=== PATIENT | male | born 1960 ===

== ENCOUNTER 2017-08-24 17:28 | Emergency (ER) | payer OTHER ==
--- NOTE | 2017-08-24 18:19 | EDM.PDOC ---
ED HPI GENERAL MEDICAL PROBLEM - General Time Seen by Provider: 08/24/17 17:30 Source of Information: Reports: Patient History Limitations: Reports: No Limitations - History of Present Illness INITIAL COMMENTS - FREE TEXT/NARRATIVE: Pt was cutting wood at home using his chain saw and accidentally the saw hit his left knee and sustained 4 cm long.The wound is gapping and presently not bleeding. he did clean and apply bandaid on it. No pain in the knee. His last tetanus shot was 2 months ago. Onset: Today Onset Date: 08/24/17 Onset Time: 17:00 ED ROS GENERAL - Review of Systems Review Of Systems: See Below Constitutional: Denies: Fever, Chills HEENT: Denies: Rhinitis, Throat Pain, Throat Swelling Respiratory: Denies: Cough, Sputum Cardiovascular: Denies: Chest Pain, Lightheadedness GI/Abdominal: Denies: Abdominal Pain, Nausea, Vomiting ED EXAM, GENERAL - Physical Exam Exam: See Below Exam Limited By: No Limitations General Appearance: Alert, WD/WN, No Apparent Distress Eye Exam: Bilateral Eye: EOMI, PERRL Ears: Normal External Exam, Normal Canal, Hearing Grossly Normal, Normal TMs Nose: Normal Inspection, Normal Mucosa, No Blood Throat/Mouth: Normal Inspection, Normal Lips, Normal Teeth, Normal Gums, Normal Oropharynx, Normal Voice, No Airway Compromise Head: Atraumatic, Normocephalic Neck: Normal Inspection, Supple, Non-Tender, Full Range of Motion Extremities: Normal Range of Motion, Non-Tender, No Pedal Edema, Normal Capillary Refill, Other (Left knee: There is a 4 cm long clean cut laceration which is skin deep. No active bleeding, but is over the knee joint and gapping.) ED GENERAL MEDICAL PROCEDURES - Laceration/Wound Repair Left Knee Lac/wound length in cm: 4 Appearance: Superficial, Subcutaneous Anesthetic Type: Local Local Anesthesia - Lidocaine (Xylocaine): 2% with EPI Local Anesthetic Volume: 3cc Skin Prep: Providone-Iodine (Betadine) Closed with: Sutures Suture Size: other (5-O) # of Sutures: 8 Suture Type: Other (monosuf) Sterile Dressing Applied: Provider Tetanus Status Addressed: Yes Complications: No Course - Vital Signs Text/Narrative:: Pt has a 4 cm long clean gapping wound over the left knee. The wound was cleaned with povidine lotion . The wound was closed under aseptic precautions. Advised to avoid extreme flexion of the knee to prevent suture tear.Wound care discussed. suture removal in 10 days. Departure - Departure Time of Disposition: 18:00 Disposition: Home, Self-Care 01 Condition: Good Clinical Impression: Laceration of knee without complication - Discharge Information Instructions: Sutured Wound Care, [id number] Additional Instructions: Do not wet the wound for 2 days. After 2 days may let soap and water run over wound, than pat area dry. Follow up in clinic in 10 to 12 days to have sutures removed. Do not overbend knee or kneel on knee. Watch for signs of infection such as redness, swelling, drainage, fever or chills. If signs of infection occur follow up with provider for care of infection. - Problem List & Annotations (1) Laceration of knee without complication SNOMED Code(s): 669100880 Code(s): S81.019A - LACERATION WITHOUT FOREIGN BODY, UNSP KNEE, INIT ENCNTR Status: Acute - Problem List Review Problem List Initiated/Reviewed/Updated: Yes - Assessment/Plan Assessment:: 4 cm laceration of left knee Plan: Pt has a 4 cm long clean gapping wound over the left knee. The wound was cleaned with povidine lotion . The wound was closed under aseptic precautions. Advised to avoid extreme flexion of the knee to prevent suture tear.Wound care discussed. suture removal in 10 days.
== END 2017-08-24 18:05 | disposition home or self-care (01) ==
LOC: LB.ED 17:28
DX: S81.012A Laceration without foreign body, left knee, initial encounter (principal); W29.3XXA Contact with powered garden and outdoor hand tools and machinery, initial encounter
CPT/HCPCS: 12002; 99282-25